=== PATIENT | male | born 1970 | race Caucasian/White ===

== ENCOUNTER 2019-05-03 08:49 | Day surgery (SDC) | payer OTHER ==
[~2019-05-03] VITALS: Ht 172.7 cm; Wt 105.8 kg
[~2019-05-03 08:49] MED LIST: LOSA25 PO; VITAMIN D35000 UNI2
--- NOTE | 2019-05-03 14:29 | NUR ---
05/03/19 1429 MIHAELA YBARRA PATIENT TRANSFERRED TO STEP DOWN UNIT AND ASSISTED TO RECLINER. PATIENT BEGAN VOMITING A CLEAR, YELLOWISH EMESIS, 50 ML. PATIENT REPORTED FEELING BETTER AFTER. PATIENT MEDICATED PER EMAR WITH ODANSETRON 4MG IV.
== END 2019-05-03 15:13 | disposition home or self-care (01) ==
LOC: ORSCSDS 08:49
PROVIDERS: Orthopaedic Surgery
PROC: 01X40Z4 Transfer Ulnar Nerve to Ulnar Nerve, Open Approach (ICD-10-PCS; principal; 2019-05-03 10:30)
PROC: 01N50ZZ Release Median Nerve, Open Approach (ICD-10-PCS; principal; 2019-05-03 10:30)
DX: G56.01 Carpal tunnel syndrome, right upper limb (principal); G56.20 Lesion of ulnar nerve, unspecified upper limb; I10 Essential (primary) hypertension; E66.9 Obesity, unspecified; Z68.34 Body mass index [BMI] 34.0-34.9, adult; Z79.899 Other long term (current) drug therapy
CPT/HCPCS: A9270-GY; J0171; J0690; J2250; J2405; J2704; J2765; J3010; J7040; J7120

== ENCOUNTER 2020-10-14 11:41 | Emergency (ER) | payer OTHER ==
[~2020-10-14] VITALS: Ht 172.7 cm; Wt 105.2 kg
== END 2020-10-14 13:06 | disposition home or self-care (01) ==
LOC: ER 11:41
DX: T63.461A Toxic effect of venom of wasps, accidental (unintentional), initial encounter (principal); I10 Essential (primary) hypertension; Z88.8 Allergy status to other drugs, medicaments and biological substances; Z79.899 Other long term (current) drug therapy
CPT/HCPCS: 99282; A9270; J1100

== ENCOUNTER 2021-05-11 13:22 | Emergency (ER) | payer OTHER ==
[~2021-05-11] VITALS: Ht 172.7 cm; Wt 106.1 kg
[2021-05-11 13:57] LABS: BASOPHILS ABSOLUTE AUTO 0.05 K/mm3 (0.00-0.23); BASOPHILS PERCENT AUTO 1 % (0-2); EOSINOPHILS ABSOLUTE AUTO 0.14 K/mm3 (0.00-0.68); EOSINOPHILS PERCENT AUTO 2 % (0-6); Hematocrit 52.5 % (37.0-53.0); Hemoglobin 17.9 g/dL (13.5-17.5); IMMATURE GRAN ABSOLUTE AUTO 0.01 K/mm3 (0.00-0.10); IMMATURE GRAN PERCENT AUTO 0 % (0-1); LYMPHOCYTES ABSOLUTE AUTO 0.96 K/mm3 (0.84-5.20); LYMPHOCYTES PERCENT AUTO 14 % (21-46); MONOCYTES PERCENT AUTO 6 % (4-13); Mean Corpuscular HGB 30.8 pg (26.0-34.0); Mean Corpuscular HGB Conc 34.1 g/dL (31.5-36.5); Mean Corpuscular Volume 90 fL (80-100); Mean Platelet Volume 9.6 fL (9.1-12.4); NEUTROPHILS ABSOLUTE AUTO 5.49 K/mm3 (1.96-9.15); NEUTROPHILS PERCENT AUTO 78 % (41-73); Platelet Count 252 K/mm3 (150-400); RDW Coefficient Variation 12.7 % (11.7-14.2); RDW Standard Deviation 42.1 fL (35.1-46.3); Red Blood Cell Count 5.81 M/mm3 (4.30-5.90); White Blood Cell Count 7.05 K/mm3 (4.00-11.30)
[2021-05-11 14:15] LABS: Alanine Aminotransfer (ALT/SGP 47 U/L (12-78); Albumin, Blood 4.1 g/dL (3.4-5.0); Albumin/Globulin Ratio 1.2 (0.8-1.8); Alk Phos 88 U/L (50-136); Anion Gap 8 mmol/L (6-16); Aspartate Aminotrans (AST/SGOT 35 U/L (12-37); Bilirubin, Total 0.4 mg/dL (0.1-1.0); Blood Urea Nitrogen 17 mg/dL (8-24); Bun/Creatinine Ratio 17.7 (12.0-20.0); CO2, Blood 26 mmol/L (21-32); Calcium, Blood 9.4 mg/dL (8.5-10.1); Chloride, Blood 104 mmol/L (98-108); Creatinine, Blood 0.96 mg/dL (0.60-1.20); Globulin, Blood 3.5 g/dL (2.2-4.0); Glomerular Filtration Rate >60 (60-); Glucose, Blood 139 mg/dL (70-99); Potassium, Blood 3.8 mmol/L (3.5-5.5); Sodium, Blood 138 mmol/L (136-145); Total Protein, Blood 7.6 g/dL (6.4-8.2)
[2021-05-11] MEDS ORDERED: Omeprazole20 M1 PO (16:26)
== END 2021-05-11 17:35 | disposition home or self-care (01) ==
LOC: ER 13:22
PROVIDERS: Emergency Medicine
DX: K21.9 Gastro-esophageal reflux disease without esophagitis (principal); R07.9 Chest pain, unspecified; I10 Essential (primary) hypertension; Z79.899 Other long term (current) drug therapy
CPT/HCPCS: 36415; 71046; 80053; 83690; 84484; 85025; 93005; 93010; 99284-25; A9270

== ENCOUNTER 2022-06-10 11:22 | Emergency (ER) | payer OTHER ==
[~2022-06-10] VITALS: Ht 177.8 cm; Wt 90.7 kg
[~2022-06-10 11:22] MED LIST changes: +MELO7.5 PO; +Omeprazole20 M1 PO
[2022-06-10 12:32] LABS: BASOPHILS ABSOLUTE AUTO 0.04 K/mm3 (0.00-0.23); BASOPHILS PERCENT AUTO 1 % (0-2); EOSINOPHILS ABSOLUTE AUTO 0.03 K/mm3 (0.00-0.68); EOSINOPHILS PERCENT AUTO 0 % (0-6); Hematocrit 50.2 % (37.0-53.0); Hemoglobin 17.5 g/dL (13.5-17.5); IMMATURE GRAN ABSOLUTE AUTO 0.03 K/mm3 (0.00-0.10); IMMATURE GRAN PERCENT AUTO 0 % (0-1); LYMPHOCYTES ABSOLUTE AUTO 0.94 K/mm3 (0.84-5.20); LYMPHOCYTES PERCENT AUTO 14 % (21-46); MONOCYTES PERCENT AUTO 6 % (4-13); Mean Corpuscular HGB 30.5 pg (26.0-34.0); Mean Corpuscular HGB Conc 34.9 g/dL (31.5-36.5); Mean Corpuscular Volume 88 fL (80-100); Mean Platelet Volume 9.7 fL (9.1-12.4); NEUTROPHILS PERCENT AUTO 79 % (41-73); Platelet Count 253 K/mm3 (150-400); RDW Coefficient Variation 13.4 % (11.7-14.2); Red Blood Cell Count 5.74 M/mm3 (4.30-5.90); White Blood Cell Count 6.94 K/mm3 (4.00-11.30)
[2022-06-10 13:59] LABS: Albumin, Blood 4.1 g/dL (3.4-5.0); Albumin/Globulin Ratio 1.2 (0.8-1.8); Bilirubin, Total 0.6 mg/dL (0.1-1.0); Creatinine, Blood 1.06 mg/dL (0.60-1.20); Globulin, Blood 3.3 g/dL (2.2-4.0); Potassium, Blood 4.2 mmol/L (3.5-5.5); Total Protein, Blood 7.4 g/dL (6.4-8.2)
[2022-06-10] MEDS ORDERED: CLON.5 (15:45)
[2022-06-10] MEDS ORDERED: Almacone Liqui355 ML PO (16:55)
[2022-06-10] MEDS ORDERED: CYCL10 PO (16:55)
[2022-06-10] MEDS ORDERED: ONDA4ODT MM (16:55)
[2022-06-10 17:16] VITALS: BP 153/90
== END 2022-06-10 17:20 | disposition home or self-care (01) ==
LOC: ER 11:22
PROVIDERS: Physician Assistant
DX: R13.10 Dysphagia, unspecified (principal); R11.10 Vomiting, unspecified; K44.9 Diaphragmatic hernia without obstruction or gangrene; I10 Essential (primary) hypertension; K21.9 Gastro-esophageal reflux disease without esophagitis; Z88.8 Allergy status to other drugs, medicaments and biological substances; Z79.899 Other long term (current) drug therapy
CPT/HCPCS: 36415; 71046; 80053; 84484; 85025; 93005; 93010; 99284-25; A9270

== ENCOUNTER 2024-02-29 01:03 | Emergency (ER) | payer OTHER ==
[~2024-02-29] VITALS: Ht 172.7 cm; Wt 104.3 kg
[~2024-02-29 01:03] MED LIST changes: +Almacone Liqui355 ML PO; +CLON.5; +CYCL10 PO; +ONDA4ODT MM
[2024-02-29 01:27] LABS: BASOPHILS ABSOLUTE AUTO 0.04 K/mm3 (0.00-0.23); BASOPHILS PERCENT AUTO 1 % (0-2); EOSINOPHILS ABSOLUTE AUTO 0.12 K/mm3 (0.00-0.68); EOSINOPHILS PERCENT AUTO 2 % (0-6); Hematocrit 52.8 % (37.0-53.0); Hemoglobin 18.5 g/dL (13.5-17.5); IMMATURE GRAN ABSOLUTE AUTO 0.02 K/mm3 (0.00-0.10); IMMATURE GRAN PERCENT AUTO 0 % (0-1); LYMPHOCYTES ABSOLUTE AUTO 1.33 K/mm3 (0.84-5.20); LYMPHOCYTES PERCENT AUTO 20 % (21-46); MONOCYTES ABSOLUTE AUTO 0.51 K/mm3 (0.16-1.47); MONOCYTES PERCENT AUTO 8 % (4-13); Mean Corpuscular HGB 30.7 pg (26.0-34.0); Mean Corpuscular Volume 88 fL (80-100); NEUTROPHILS ABSOLUTE AUTO 4.75 K/mm3 (1.96-9.15); NEUTROPHILS PERCENT AUTO 70 % (41-73); Platelet Count 242 K/mm3 (150-400); RDW Coefficient Variation 13.2 % (11.7-14.2); RDW Standard Deviation 42.6 fL (35.1-46.3); Red Blood Cell Count 6.02 M/mm3 (4.30-5.90); White Blood Cell Count 6.77 K/mm3 (4.00-11.30)
[2024-02-29 01:48] LABS: Albumin, Blood 4.2 g/dL (3.4-5.0); Albumin/Globulin Ratio 1.2 (0.8-1.8); Bilirubin, Total 0.8 mg/dL (0.1-1.0); Bun/Creatinine Ratio 19.6 (12.0-20.0); Calcium, Blood 9.3 mg/dL (8.5-10.1); Creatinine, Blood 1.07 mg/dL (0.60-1.20); Globulin, Blood 3.5 g/dL (2.2-4.0); Potassium, Blood 3.6 mmol/L (3.5-5.5); Total Protein, Blood 7.7 g/dL (6.4-8.2)
[2024-02-29] MEDS ORDERED: Pantoprazole Sodium 40 MG Injection IV ONE (05:00)
[2024-02-29] MEDS ORDERED: Mag Hydrox/AL Hydrox/Simeth 30 ML UDC PO ONE (05:00)
[2024-02-29] MEDS ORDERED: ALMACONE SUSPE355 ML PO (05:01)
[2024-02-29] MEDS ORDERED: PANT40 PO (05:01)
[2024-02-29 05:15] VITALS: BP 139/88
== END 2024-02-29 05:28 | disposition home or self-care (01) ==
LOC: ER 01:03
PROVIDERS: Emergency Medicine
DX: R07.9 Chest pain, unspecified (principal); E86.0 Dehydration; K27.9 Peptic ulcer, site unspecified, unspecified as acute or chronic, without hemorrhage or perforation; I10 Essential (primary) hypertension; K21.9 Gastro-esophageal reflux disease without esophagitis; Z68.35 Body mass index [BMI] 35.0-35.9, adult; Z79.899 Other long term (current) drug therapy; Z88.8 Allergy status to other drugs, medicaments and biological substances
CPT/HCPCS: 71046; 80053; 83690; 84484; 85025; 93005; 93010; 96374; 99285-25; A9270; J2470

== ENCOUNTER 2024-09-14 15:32 | Emergency (ER) | payer OTHER ==
[~2024-09-14] VITALS: Ht 172.7 cm; Wt 95.2 kg
[~2024-09-14 15:32] MED LIST changes: +ALMACONE SUSPE355 ML PO; +PANT40 PO
[2024-09-14 16:02] LABS: BASOPHILS ABSOLUTE AUTO 0.08 K/mm3 (0.00-0.23); BASOPHILS PERCENT AUTO 1 % (0-2); EOSINOPHILS ABSOLUTE AUTO 0.15 K/mm3 (0.00-0.68); EOSINOPHILS PERCENT AUTO 2 % (0-6); Hemoglobin 19.1 g/dL (13.5-17.5); IMMATURE GRAN ABSOLUTE AUTO 0.04 K/mm3 (0.00-0.10); IMMATURE GRAN PERCENT AUTO 0 % (0-1); LYMPHOCYTES ABSOLUTE AUTO 1.42 K/mm3 (0.84-5.20); LYMPHOCYTES PERCENT AUTO 16 % (21-46); MONOCYTES ABSOLUTE AUTO 0.61 K/mm3 (0.16-1.47); MONOCYTES PERCENT AUTO 7 % (4-13); Mean Corpuscular HGB Conc 34.4 g/dL (31.5-36.5); Mean Corpuscular Volume 90 fL (80-100); NEUTROPHILS ABSOLUTE AUTO 6.62 K/mm3 (1.96-9.15); NEUTROPHILS PERCENT AUTO 74 % (41-73); NRBC ABSOLUTE 0.00 K/mm3 (0.00-0.02); NRBC Auto 0.0 /100 WBC (0.0-0.2); Platelet Count 252 K/mm3 (150-400); RDW Coefficient Variation 13.2 % (11.7-14.2); RDW Standard Deviation 44.0 fL (35.1-46.3)
[2024-09-14 16:07] LABS: Hematocrit 55.6 % (37.0-53.0)
[2024-09-14] MEDS ORDERED: OMEPRAZOLE20 M1 PO (16:26)
[2024-09-14] MEDS ORDERED: DEPO-TESTO200 MG/18 IM (16:27)
[2024-09-14 16:31] LABS: Alanine Aminotransfer (ALT/SGP 45.0 U/L (12-78); Albumin, Blood 3.9 g/dL (3.4-5.0); Albumin/Globulin Ratio 1.0 (0.8-1.8); Anion Gap 11.0 mmol/L (3-11); Aspartate Aminotrans (AST/SGOT 23.0 U/L (12-37); Bilirubin, Total 0.6 mg/dL (0.1-1.0); Blood Urea Nitrogen 14.0 mg/dL (8-24); CO2, Blood 25.0 mmol/L (21-32); Calcium, Blood 8.6 mg/dL (8.5-10.1); Chloride, Blood 102.0 mmol/L (98-108); Creatinine, Blood 1.08 mg/dL (0.60-1.20); Globulin, Blood 3.9 g/dL (2.2-4.0); Glucose, Blood 103.0 mg/dL (70-99); Potassium, Blood 3.7 mmol/L (3.5-5.5); Sodium, Blood 134.0 mmol/L (136-145); Total Protein, Blood 7.8 g/dL (6.4-8.2)
[2024-09-14 17:19] LABS: Thyroid Stimulating Hormone 1.05 uIU/mL (0.360-4.800)
[2024-09-14 17:53] VITALS: BP 157/71
== END 2024-09-14 17:54 | disposition home or self-care (01) ==
LOC: ER 15:32
PROVIDERS: Physician Assistant
DX: R00.2 Palpitations (principal); I10 Essential (primary) hypertension; K21.9 Gastro-esophageal reflux disease without esophagitis; Z79.899 Other long term (current) drug therapy; Z88.8 Allergy status to other drugs, medicaments and biological substances
CPT/HCPCS: 71046; 80053; 83880; 84439; 84443; 84484; 85025; 85379; 93005; 93010; 99285-25

== ENCOUNTER 2024-09-16 06:43 | Day surgery (SDC) | payer OTHER ==
[~2024-09-16] VITALS: Ht 172.7 cm; Wt 96.3 kg
[~2024-09-16 06:43] MED LIST changes: +DEPO-TESTO200 MG/18 IM; +OMEPRAZOLE20 M1 PO
[2024-09-16] MEDS ORDERED: CeFAZolin Sodium 2,000 MG VIAL ONE (07:39)
[2024-09-16] MEDS ORDERED: Sodium Bicarb 8.4% 1 MEQ/ML 50 ML Vial XX ONE (07:54)
[2024-09-16] MEDS ORDERED: Lidocaine 1%-Epineph 1:100000 20 ML MDV INJ ONE (07:54)
[2024-09-16] MEDS ORDERED: NS 500 ML IV ONE (07:58)
--- NOTE | 2024-09-16 08:01 | NUR ---
09/16/24 0801 Lupe Womack 8ML LIDOCAINE 1% WITH EPI 1:100,[address] [place] [id number]. TIMEOUT DONE PRIOR TO INJECTION. PT TOLERATED WELL. CALL LIGHT IN REACH.
[2024-09-16 09:07] VITALS: BP 111/71
--- NOTE | 2024-09-16 09:10 | NUR ---
09/16/24 0910 Reena Alexandra REPORT RECEIVED FROM JOHNNIE AND RN. PT ASLEEP UPON ARRIVAL, AROUSABLE TO VOICE. PT CURRENTLY DROWSY, BUT AROUSABLE TO VOICE. FOLLOWS COMMANDS AND ANSWERS QUESTIONS. DENIES PAIN OR NAUSEA AT THIS TIME. CAP REFILL ON LEFT HAND <3 SECONDS, FINGERS PINK, WARM, DRY. UNABLE TO ASSESS RADIAL PULSE AT THIS TIME DUE TO DRESSING
== END 2024-09-16 09:29 | disposition home or self-care (01) ==
LOC: ORSCSDS 06:43
PROVIDERS: Orthopaedic Surgery
PROC: 01N54ZZ Release Median Nerve, Percutaneous Endoscopic Approach (ICD-10-PCS; principal; 2024-09-16 08:45)
DX: G56.02 Carpal tunnel syndrome, left upper limb (principal); I10 Essential (primary) hypertension; E66.9 Obesity, unspecified; Z68.32 Body mass index [BMI] 32.0-32.9, adult; Z79.899 Other long term (current) drug therapy
CPT/HCPCS: J0690; J2704; J7040